=== PATIENT | male | born 1985 | race Caucasian/White ===

== ENCOUNTER 2023-09-02 10:24 | Emergency (ER) | payer SELFPAY ==
[2023-09-02 11:04] VITALS: BP 165/95; PULSE 78; TEMP 36.9; O2SAT 99; BMI 33.0
--- NOTE | 2023-09-02 12:02 | PC.NURSE ---
Right eye with contact 20/60 Left eye with no contact - can't read the chart Both eyes- 20/60
--- NOTE | 2023-09-02 12:26 | ED.EYEPROB1 ---
HPI - Eye Problem General Chief complaint: Eye Problems Stated complaint: EYE PAIN Time Seen by Provider: 09/02/23 12:23 Source: patient and family Mode of arrival: walk-in History of Present Illness HPI Narrative: This patient is here complaining of pain in his left eye. He typically has both daily wear and extended wear contact lenses. He currently has a problem in his left eye only. He was wearing a daily wear contact lenses but left it in longer than what he typically would. He did remove it. Today he has pain and light sensitivity and irritation to the left eye. It was watering. Related Data Home Medications ?Medication ?Instructions ?Recorded ?Confirmed No Known Home Medications 09/02/23 09/02/23 Allergies Allergy/AdvReac Type Severity Reaction Status Date / Time No Known Allergies Allergy Mild Verified 09/02/23 11:09 Exam Narrative Exam Narrative: Alert pleasant here with his family member blood pressure slightly up. There is injection of the conjunctival vessels on the left eye. The lids and lashes are normal. On gross inspection there is a small round white cloudy area at the 2 o'clock position on the cornea. There is no obvious foreign bodies. There is no purulent drainage or discharge. A slit-lamp examination will be done. After explaining to the patient we did instill tetracaine drops into his left symptomatic eye. He had complete resolution of his discomfort at that time. Then with fluorescein stain we did a slit-lamp examination that shows a small well-defined round approximately 1 mm ulcer at the 2 o'clock position at the limbus. Rest examination the eye was negative for any foreign bodies or evidence of infectious process. Constitutional Vital Signs, click to edit/add: Last Vital Signs Temp 98.4 F 09/02/23 11:04 Pulse 78 09/02/23 11:04 Resp 16 09/02/23 11:04 BP 165/95 H 09/02/23 11:04 Pulse Ox 99 09/02/23 11:04 O2 Del Method Room Air 09/02/23 11:04 Course Vital Signs Vital signs: Vital Signs Temperature 98.4 F 09/02/23 11:04 Pulse Rate 78 09/02/23 11:04 Respiratory Rate 16 09/02/23 11:04 Blood Pressure 165/95 H 09/02/23 11:04 Pulse Oximetry 99 09/02/23 11:04 Oxygen Delivery Method Room Air 09/02/23 11:04 Temperature 98.4 F 09/02/23 11:04 Pulse Rate 78 09/02/23 11:04 Respiratory Rate 16 09/02/23 11:04 Blood Pressure 165/95 H 09/02/23 11:04 Pulse Oximetry 99 09/02/23 11:04 Oxygen Delivery Method Room Air 09/02/23 11:04 MDM - Eye Problem MDM Narrative Medical decision making narrative: This patient has a small ulcer at the 2 o'clock position left eye. Pain relieved with tetracaine. Treatment recommendations were discussed and we emphasized follow-up with an caddy/caddie supervisor early next week. He is to avoid light and have eye rest for the next 48 hours Discharge Plan Discharge Stand Alone Forms: Portal Instructions Chief Complaint: Eye Problems Clinical Impression: Corneal ulcer Patient Disposition: Home, Self-Care Time of Disposition Decision: 12:59 Prescriptions / Home Meds: No Action No Known Home Medications Print Language: Turkish Additional Instructions: Eye rest, ketorolac/Garamycin drops/follow-up with caddy/caddie supervisor early next week Referrals: Physician,Non-Staff, MD [Primary Care Provider] - 1 week
[2023-09-02] MEDS: FLUORESCEIN SODIUM 1 MG STRIP OP (12:40)
[2023-09-02] MEDS: TETRACAINE HCL 0.5% OP SOL 80 DROP/4 ML BOTTLE OP (12:40)
[2023-09-02 13:10] VITALS: BP 130/82; PULSE 71; O2SAT 100
[2023-09-02] MEDS: TROPICAMIDE 1% OP SOL 300 DROP/15 ML BOTTLE OP (13:19)
== END 2023-09-02 13:20 | disposition home or self-care (01) ==
PROVIDERS: Emergency Provider Emergency Medicine Emergency Medical Services
DX: H16.002 Unspecified corneal ulcer, left eye (principal)
CPT/HCPCS: 99283

== ENCOUNTER 2024-05-12 20:29 | Emergency (ER) | payer BC, SELFPAY | END 2024-05-12 20:38 | disposition left against medical advice (07) | LOC: ER 20:31 | PROVIDERS: Emergency Provider Emergency Medicine | DX: Z53.21 Procedure and treatment not carried out due to patient leaving prior to being seen by health care provider (principal) ==

== ENCOUNTER 2024-05-24 20:24 | Emergency (ER) | payer BC, SELFPAY ==
[2024-05-24 20:31] VITALS: BP 181/106; PULSE 73; TEMP 36.5; O2SAT 98; BMI 35.9
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
[2024-05-24] MEDS: OXYCODONE HCL/ACETAMINOPHEN 5MG/325MG 1 TAB PO (21:18)
[2024-05-24] MEDS: TIZANIDINE HCL 4 MG TABLET PO (21:18)
[2024-05-24 21:25] VITALS: BP 150/100
== END 2024-05-24 22:48 | disposition home or self-care (01) ==
PROVIDERS: Emergency Provider Emergency Medicine
DX: S43.401A Unspecified sprain of right shoulder joint, initial encounter (principal); S80.11XA Contusion of right lower leg, initial encounter; S09.90XA Unspecified injury of head, initial encounter; S60.512A Abrasion of left hand, initial encounter; S60.511A Abrasion of right hand, initial encounter; S50.811A Abrasion of right forearm, initial encounter; S80.211A Abrasion, right knee, initial encounter; S80.811A Abrasion, right lower leg, initial encounter; V28.49XA Other motorcycle driver injured in noncollision transport accident in traffic accident, initial encounter
CPT/HCPCS: 73030; 73562; 73590; 99285